=== PATIENT | female | born 1985 | race Caucasian/White ===

== ENCOUNTER 2019-01-07 22:18 | Emergency (ER) | payer OTHER ==
--- NOTE | 2019-01-07 22:40 | ERPHSYRPT ---
- History of Present Illness Time Seen by Provider: 01/07/19 22:40 Historian: patient, family Exam Limitations: no limitations Physician History: 33 y/o wallis[place] female presents with first right flank pain for 2 days then over last 24 hours pain rlq with assoc nausea. no vomiting and no diarrhea. no vaginal discharge. last menstrual period ended 1 week ago. no prior abd surgeries Timing/Duration: day(s) (2) Quality: sharpness, stabbing Abdominal Pain Onset Location: RLQ, flank (right) Severity of Pain-Max: moderate Severity of Pain-Current: moderate Modifying Factors: Worsens With: coughing, palpation, vomiting, walking Associated Symptoms: nausea, No diarrhea, No fever/chills, No vomiting Previous symptoms: no prior history Allergies/Adverse Reactions: No Known Drug Allergies Allergy (Unverified 01/07/19 22:50) - Review of Systems Constitutional: No Symptoms Eyes: No Symptoms Ears, Nose, & Throat: No Symptoms Respiratory: No Symptoms Cardiac: No Symptoms Abdominal/Gastrointestinal: Abdominal Pain, Nausea, No Vomiting, No Diarrhea Genitourinary Symptoms: No Symptoms, No Dysuria, No Frequency, No Hematuria Musculoskeletal: No Symptoms Skin: No Symptoms Neurological: No Symptoms Psychological: No Symptoms Endocrine: No Symptoms Hematologic/Lymphatic: No Symptoms Immunological/Allergic: No Symptoms All Other Systems: Reviewed and Negative - Past Medical History Neurological History: No Pertinent History ENT History: No Pertinent History Cardiac History: No Pertinent History Respiratory History: No Pertinent History Endocrine Medical History: No Pertinent History Musculoskeletal History: No Pertinent History GI Medical History: No Pertinent History History: No Pertinent History Psycho-Social History: No Pertinent History Female Reproductive Disorders: No Pertinent History - Past Surgical History Neuro Surgical History: No Pertinent History Cardiac: No Pertinent History Respiratory: No Pertinent History Gastrointestinal: No Pertinent History Genitourinary: No Pertinent History Musculoskeletal: No Pertinent History Female Surgical History: No Pertinent History - Nursing Vital Signs Nursing Vital Signs: Initial Vital Signs Temperature 98.1 F 01/07/19 22:51 Pulse Rate 68 01/07/19 22:51 Respiratory Rate 18 01/07/19 22:51 Blood Pressure 133/84 01/07/19 22:51 O2 Sat by Pulse Oximetry 100 01/07/19 22:51 Pain Scale Pain Intensity 7 - Physical Exam General Appearance: no apparent distress, alert, anxiety Eye Exam: PERRL/EOMI Ears, Nose, Throat Exam: normal ENT inspection, moist mucous membranes Neck Exam: normal inspection, non-tender, supple, full range of motion Respiratory Exam: normal breath sounds, lungs clear, airway intact, No chest tenderness, No respiratory distress Cardiovascular Exam: regular rate/rhythm, normal heart sounds, normal peripheral pulses Gastrointestinal/Abdomen Exam: soft, normal bowel sounds, tenderness (right lower quadrant), guarding (mild), No rebound Pelvic Exam: not done Rectal Exam: not done Back Exam: normal inspection, normal range of motion, No CVA tenderness, No vertebral tenderness Extremity Exam: normal inspection, normal range of motion, pelvis stable Neurologic Exam: alert, oriented x 3, cooperative, 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 nml as tested Skin Exam: normal color, warm, dry Lymphatic Exam: No adenopathy SpO2 Interpretation: normal O2 Delivery: Room Air Ordered Tests: Active Orders 24 hr Category Date Time Status IV Insertion STAT Care 01/07/19 23:07 Active ABDOMEN AND PELVIS W CONTRAST [CT] Stat Exams 01/07/19 23:50 Taken AMYLASE Stat Lab 01/07/19 23:18 Completed CBC W DIFF Stat Lab 01/07/19 23:18 Completed CMP Stat Lab 01/07/19 23:18 Completed HCG,QUALITATIVE URINE Stat Lab 01/07/19 23:18 Completed LIPASE Stat Lab 01/07/19 23:18 Completed Lactic Acid Stat Lab 01/07/19 23:07 Completed UA W/RFX UR CULTURE Stat Lab 01/07/19 23:18 Completed Medication Summary Discontinued Medications Generic Name Dose Route Start Last Admin Trade Name Ghanshyam PRN Reason Stop Dose Admin Hydrocodone Bitart/Acetaminophen Confirm 01/07/19 23:34 Cutler 5/325 Mg Administered 01/07/19 23:35 Dose 1 tab .ROUTE .STK-MED ONE Hydrocodone Bitart/Acetaminophen 1 tab 01/07/19 23:36 01/07/19 23:45 Cutler 5/325 Mg PO 01/07/19 23:37 1 tab STAT ONE Administration Hydroxyzine HCl 25 mg 01/07/19 23:24 01/07/19 23:36 Atarax 25 Mg PO 01/07/19 23:25 25 mg STAT ONE Administration Hydroxyzine HCl Confirm 01/07/19 23:23 Atarax 25 Mg Administered 01/07/19 23:24 Dose 25 mg .ROUTE .STK-MED ONE Sodium Chloride 1,000 mls @ 999 mls/hr 01/07/19 23:07 01/08/19 01:43 Sodium Chloride 0.9% 1000 Ml IV 01/08/19 00:07 Infused .Q1H1M STA Infusion Sodium Chloride Confirm 01/07/19 23:58 Sodium Chloride 0.9% 1000 Ml Administered 01/07/19 23:59 Dose 1,000 mls @ ud .ROUTE .STK-MED ONE Lorazepam 0.5 mg 01/07/19 23:51 01/08/19 00:07 Ativan 2 Mg/1 Ml Vial IV 01/07/19 23:52 0.5 mg STAT ONE Administration Lorazepam Confirm 01/07/19 23:58 Ativan 2 Mg/1 Ml Vial Administered 01/07/19 23:59 Dose 2 mg .ROUTE .STK-MED ONE Ondansetron HCl 4 mg 01/07/19 23:07 01/08/19 00:04 Zofran 4 Mg/2 Ml Vial IV 01/07/19 23:08 4 mg STAT ONE Administration Ondansetron HCl Confirm 01/07/19 23:58 Zofran 4 Mg/2 Ml Vial Administered 01/07/19 23:59 Dose 4 mg .ROUTE .STK-MED ONE Lab/Rad Data: Laboratory Result Diagrams 01/07/19 23:18 01/07/19 23:18 Laboratory Results 01/07/19 01/07/19 01/07/19 Range/Units 23:18 23:18 23:18 WBC (4.0-10.5) K/mm3 RBC (4.1-5.4) M/mm3 Hgb (12.0-16.0) gm/dl Hct (35-47) % MCV (78-100) fl MCH (26-32) pg MCHC (32-36) g/dl RDW (11.5-14.0) % Plt Count (150-450) K/mm3 MPV (6-9.5) fl Gran % (36.0-66.0) % Eos # (Auto) (0-0.5) Absolute Lymphs (auto) (1.0-4.6) Absolute Monos (auto) (0.0-1.3) Lymphocytes % (24.0-44.0) % Monocytes % (0.0-12.0) % Eosinophils % (0.00-5.0) % Basophils % (0.0-0.4) % Absolute Granulocytes (1.4-6.9) Basophils # (0-0.4) Sodium 142 (137-145) mmol/L Potassium 3.7 (3.5-5.1) mmol/L Chloride 100 (98-107) mmol/L Carbon Dioxide 28 (22-30) mmol/L Anion Gap 18.1 H (5-15) MEQ/L BUN 11 (7-17) mg/dL Creatinine 0.56 (0.52-1.04) mg/dL Estimated GFR > 60.0 ML/MIN Glucose 95 (74-106) mg/dL Lactic Acid (0.4-2.0) Calcium 10.5 H (8.4-10.2) mg/dL Total Bilirubin 0.60 (0.2-1.3) mg/dL AST 37 H (14-36) U/L ALT 39 H (0-35) U/L Alkaline Phosphatase 79 (38-126) U/L Serum Total Protein 9.1 H (6.3-8.2) g/dL Albumin 5.2 H (3.5-5.0) g/dL Amylase 142 H (30-110) U/L Lipase 372 H (23-300) U/L Urine Color COLORLESS (YELLOW) Urine Appearance CLEAR (CLEAR) Urine pH 7.0 (5-6) Ur Specific [place] 1.002 (1.005-1.025) Urine Protein NEGATIVE (Negative) Urine Ketones NEGATIVE (NEGATIVE) Urine Blood SMALL (0-5) Dante/ul Urine Nitrite NEGATIVE (NEGATIVE) Urine Bilirubin NEGATIVE (NEGATIVE) Urine Urobilinogen NEGATIVE (0-1) mg/dL Ur Leukocyte Esterase NEGATIVE (NEGATIVE) Urine WBC (Auto) NONE (0-5) /HPF Urine RBC (Auto) NONE (0-2) /HPF U Epithel Cells (Auto) NONE (FEW) /HPF Urine Bacteria (Auto) NONE (NEGATIVE) /HPF Urine Mucus (Auto) SLIGHT (NEGATIVE) /HPF Urine Culture Reflexed NO (NO) Urine Glucose NEGATIVE (NEGATIVE) mg/dL Urine HCG, Qual NEGATIVE (Negative) 01/07/19 01/07/19 Range/Units 23:18 23:07 WBC 8.5 (4.0-10.5) K/mm3 RBC 4.48 (4.1-5.4) M/mm3 Hgb 13.1 (12.0-16.0) gm/dl Hct 39.6 (35-47) % MCV 88.4 (78-100) fl MCH 29.2 (26-32) pg MCHC 33.1 (32-36) g/dl RDW 13.4 (11.5-14.0) % Plt Count 365 (150-450) K/mm3 MPV 10.0 H (6-9.5) fl Gran % 54.2 (36.0-66.0) % Eos # (Auto) 0.17 (0-0.5) Absolute Lymphs (auto) 2.99 (1.0-4.6) Absolute Monos (auto) 0.71 (0.0-1.3) Lymphocytes % 35.1 (24.0-44.0) % Monocytes % 8.3 (0.0-12.0) % Eosinophils % 2.0 (0.00-5.0) % Basophils % 0.4 (0.0-0.4) % Absolute Granulocytes 4.61 (1.4-6.9) Basophils # 0.03 (0-0.4) Sodium (137-145) mmol/L Potassium (3.5-5.1) mmol/L Chloride (98-107) mmol/L Carbon Dioxide (22-30) mmol/L Anion Gap (5-15) MEQ/L BUN (7-17) mg/dL Creatinine (0.52-1.04) mg/dL Estimated GFR ML/MIN Glucose (74-106) mg/dL Lactic Acid 1.1 (0.4-2.0) Calcium (8.4-10.2) mg/dL Total Bilirubin (0.2-1.3) mg/dL AST (14-36) U/L ALT (0-35) U/L Alkaline Phosphatase (38-126) U/L Serum Total Protein (6.3-8.2) g/dL Albumin (3.5-5.0) g/dL Amylase (30-110) U/L Lipase (23-300) U/L Urine Color (YELLOW) Urine Appearance (CLEAR) Urine pH (5-6) Ur Specific [place] (1.005-1.025) Urine Protein (Negative) Urine Ketones (NEGATIVE) Urine Blood (0-5) Dante/ul Urine Nitrite (NEGATIVE) Urine Bilirubin (NEGATIVE) Urine Urobilinogen (0-1) mg/dL Ur Leukocyte Esterase (NEGATIVE) Urine WBC (Auto) (0-5) /HPF Urine RBC (Auto) (0-2) /HPF U Epithel Cells (Auto) (FEW) /HPF Urine Bacteria (Auto) (NEGATIVE) /HPF Urine Mucus (Auto) (NEGATIVE) /HPF Urine Culture Reflexed (NO) Urine Glucose (NEGATIVE) mg/dL Urine HCG, Qual (Negative) - Progress Progress: improved, re-examined Progress Note: 01/08/19 02:37 ct scan- right ovarian cyst Counseled pt/family regarding: lab results, diagnosis, need for follow-up, rad results - Departure Departure Disposition: Home Clinical Impression: Abdominal pain, Right ovarian cyst Condition: Stable Critical Care Time: No Referrals: DOCTOR,NO FAMILY [Primary Care Provider] - Additional Instructions: use tylenol and ibuprofen for pain
[2019-01-07] MEDS ORDERED: Zofran 4 MG/2 ML VIAL IV ONE (23:07)
[2019-01-07] MEDS ORDERED: Sodium Chloride 0.9% 1000 ML 1,000 ML IV STA (23:07)
[2019-01-07] MEDS ORDERED: ATARAX 25 MG ONE (23:23)
[2019-01-07] MEDS ORDERED: ATARAX 25 MG PO ONE (23:24)
[2019-01-07 23:27] LABS: Appearance CLEAR (CLEAR); Bilirubin NEGATIVE (NEGATIVE); Blood SMALL Ery/ul (0-5); Glucose NEGATIVE (NEGATIVE); Ketones NEGATIVE (NEGATIVE); Leukocyte Esterase NEGATIVE (NEGATIVE); Mucus SLIGHT /HPF (NEGATIVE); Nitrite NEGATIVE (NEGATIVE); Protein,Urine Dip NEGATIVE (Negative); Specific Gravity 1.002 (1.005-1.025); Urobilinogen NEGATIVE mg/dL (0-1)
[2019-01-07 23:29] LABS: BASOPHIL % 0.4 % (0.0-0.4); Basophil (Absolute #) 0.03 (0-0.4); Eosinophil (Absolute #) 0.17 (0-0.5); Granulocyte Absolute (ANC) 4.61 (1.4-6.9); Granulocytes % 54.2 % (36.0-66.0); Hematocrit 39.6 % (35-47); Hemoglobin 13.1 gm/dl (12.0-16.0); Lymphocyte (Absolute #) 2.99 (1.0-4.6); Lymphocytes % 35.1 % (24.0-44.0); Mean Cell Volume 88.4 fl (78-100); Mean Corpuscular Hemoglobin 29.2 pg (26-32); Mean Corpuscular Hgb Concent. 33.1 g/dl (32-36); Monocyte (Absolute #) 0.71 (0.0-1.3); Monocytes % 8.3 % (0.0-12.0); Platelet Count 365 K/mm3 (150-450); Red Blood Count 4.48 M/mm3 (4.1-5.4); Red Cell Distribution Width 13.4 % (11.5-14.0); White Blood Count 8.5 K/mm3 (4.0-10.5)
[2019-01-07] MEDS ORDERED: NORCO 5/325 MG ONE (23:34)
[2019-01-07] MEDS ORDERED: NORCO 5/325 MG PO ONE (23:36)
[2019-01-07 23:42] LABS: ALBUMIN 5.2 g/dL (3.5-5.0); ALKALINE PHOSPHATASE 79 U/L (38-126); AMYLASE 142 U/L (30-110); ANION GAP 18.1 MEQ/L (5-15); BLOOD UREA NITROGEN 11 mg/dL (7-17); CHLORIDE 100 mmol/L (98-107); Calcium 10.5 mg/dL (8.4-10.2); Carbon Dioxide 28 mmol/L (22-30); Creatinine 1 0.56 mg/dL (0.52-1.04); Glucose 95 mg/dL (74-106); LIPASE 372 U/L (23-300); Potassium 3.7 mmol/L (3.5-5.1); SGOT/AST 37 U/L (14-36); SGPT/ALT 39 U/L (0-35); SODIUM 142 mmol/L (137-145); Total Protein 9.1 g/dL (6.3-8.2)
[2019-01-07] MEDS ORDERED: Ativan 2 MG/1 ML VIAL IV ONE (23:51)
[2019-01-07] MEDS ORDERED: Zofran 4 MG/2 ML VIAL ONE (23:58)
[2019-01-07] MEDS ORDERED: Ativan 2 MG/1 ML VIAL ONE (23:58)
[2019-01-07] MEDS ORDERED: Sodium Chloride 0.9% 1000 ML 1,000 ML ONE (23:58)
[2019-01-08 01:59] VITALS: BP 123/66
[2019-01-08 02:01] VITALS: PULSE 68; O2SAT 98
--- NOTE | 2019-01-08 08:58 | XRAY ---
Indication: Right lower quadrant pain and nausea. Multiple contiguous axial images obtained through the abdomen and pelvis using 80 cc Isovue 370 contrast only. Comparison: None. Lung bases demonstrates minimal bibasilar dependent atelectasis. No infiltrate or effusion. Heart is not enlarged. Noncontrasted stomach and bowel loops appear nonobstructed. Normal appendix. 4.2 cm right ovary cyst. Tiny right adnexal free fluid presumed from rupture/leaking cyst. No free air. IUD in situ. 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 Remaining liver, gallbladder, pancreas, spleen, adrenal glands, kidneys, ureters, bladder, uterus, and aorta appear unremarkable. Osseous structures intact. Impression: 1. 4.2 cm right ovary cyst with tiny free fluid presumed from rupture/leaking cyst. 2. 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 3. Remaining CT abdomen/pelvis with contrast exam is negative. Comment: Preliminary interpretation was made by [facility]. No discrepancy. CT DI 10.97
== END 2019-01-08 02:54 | disposition home or self-care (01) ==
LOC: ED 22:18
DX: R10.9 Unspecified abdominal pain (principal); N83.201 Unspecified ovarian cyst, right side
CPT/HCPCS: 36000; 36415; 74177; 80053; 81001; 82150; 83605; 83690; 84703; 85025; 96360; 96374; 96375; 99284; J2060; J2405; A9270-GY